=== PATIENT | female | born 1950 | race Hispanic/Latino ===

== ENCOUNTER 2023-10-16 05:05 | Observation (INO) | payer MEDICARE ==
[2023-10-11 14:36] VITALS: BP 141/67; PULSE 78; RESP 13
[~2023-10-16] VITALS: Ht 157.5 cm; Wt 53.1 kg
[2023-10-16] VITALS (25 sets, daily range): BP systolic 118–154; BP diastolic 52–73; PULSE 67–93; RESP 11–18; O2SAT 98
[~2023-10-16 05:05] MED LIST: CYCL30DR OU
[2023-10-16] MEDS ORDERED: 0.9%NACL 100ML 48.45 ML, ROPIVACAINE 0.5% 5MG/ML 30ML 246.25 MG, KETOROLAC TROMETHAMINE... IV ONE ×5 (06:00)
[2023-10-16] MEDS ORDERED: LACTATED RINGERS 1000ML 1,000 ML IV ONE (06:25)
[2023-10-16] MEDS ORDERED: CEFAZOLIN SODIUM 2 GM VIAL ONE (06:25)
[2023-10-16] MEDS ORDERED: CEFAZOLIN SODIUM 1 GM VIAL ONE ×2 (08:30→10:36)
[2023-10-16] MEDS ORDERED: TRANEXAMIC ACID 1000MG/10ML ONE ×2 (08:30→10:36)
[2023-10-16] MEDS ORDERED: GENTAMICIN SULFATE 80 MG/2 ML VIAL ONE ×2 (08:31→10:36)
[2023-10-16] MEDS ORDERED: MIDAZOLAM HCL 1 MG/ML 2ML VIAL ONE (10:40)
[2023-10-16] MEDS ORDERED: ROCURONIUM 10MG/1ML SYR 10 MG/ML ML ONE (10:40)
[2023-10-16] MEDS ORDERED: LIDOCAINE PF 100MG/5ML (2%) SYRINGE 5ML ONE (10:40)
[2023-10-16] MEDS ORDERED: PROPOFOL 10 MG/ML 20ML VIAL IV ONE ×2 (10:40→12:00)
[2023-10-16] MEDS ORDERED: FENTANYL CITRATE PF 50 MCG/1 ML 2ML VIAL ONE ×2 (10:41→16:13)
[2023-10-16] MEDS ORDERED: PHENYLEPHRINE HCL 10 MG/ML 1ML VIAL IV ONE (11:23)
[2023-10-16] MEDS ORDERED: DEXAMETHASONE SOD PHOSPHATE 4 MG/ML 1ML VIAL ONE (11:42)
[2023-10-16] MEDS ORDERED: ONDANSETRON 4MG INJ ONE ×2 (11:42→13:48)
[2023-10-16] MEDS ORDERED: TRANEXAMIC ACID 1000MG/10ML IV ONE (11:50)
[2023-10-16] MEDS ORDERED: MEPERIDINE-PF 25 MG/ML SYG ONE ×2 (13:48→14:26)
[2023-10-16] MEDS ORDERED: TRAMADOL HCL 50 MG TABLET ONE (15:16)
[2023-10-16] MEDS ORDERED: DiphenhydrAMINE HCL 50 MG/ML VIAL IM PRN (18:00)
[2023-10-16] MEDS ORDERED: MAG/ALUM/SIMETH 30 ML UDCUP PO PRN (18:00)
[2023-10-16] MEDS ORDERED: LACTULOSE 20 GM/30 ML UDCUP PO PRN (18:00)
[2023-10-16] MEDS ORDERED: ZINC OXIDE OINT 30GM TUBE TP PRN ×2 (18:00→18:30)
[2023-10-16] MEDS ORDERED: HYDROMORPHONE PCA 10 MG/50 ML 50 ML IV PRN (18:00)
[2023-10-16] MEDS ORDERED: DIPHENOXYLATE HCL/ATROPINE 2.5/0.025 MG TAB PO PRN (18:00)
[2023-10-16] MEDS ORDERED: ONDANSETRON 4MG INJ IVP PRN (18:00)
[2023-10-16] MEDS ORDERED: DIPHENHYDRAMINE HCL 25 MG CAPSULE PO PRN (18:00)
[2023-10-16] MEDS ORDERED: BENZOCAINE/MENTH/CETYLPYRD CL 1 EACH LOZENGE MM PRN (18:00)
[2023-10-16] MEDS ORDERED: ACETAMINOPHEN 325 MG TAB PO PRN ×2 (18:00)
[2023-10-16] MEDS ORDERED: ACETAMINOPHEN 325 MG TAB PO SCH (18:00)
[2023-10-16] MEDS ORDERED: DIPHENHYDRAMINE HCL 25 MG CAPSULE PO SCH (18:00)
[2023-10-16] MEDS: 0.9%NACL 1000ML 1,000 ML IV SCH ×2 (18:15→18:40)
[2023-10-16] MEDS: TRAMADOL HCL 50 MG TABLET PO PRN (20:02)
[2023-10-16] MEDS: CEFAZOLIN SODIUM 2 GM VIAL IVPB SCH (20:10)
[2023-10-16] MEDS: (Cyclosporine (Restasis) 1 DROP) OU SCH (21:00)
[2023-10-17] VITALS (7 sets, daily range): BP systolic 117–136; BP diastolic 57–78; PULSE 75–95; RESP 16–20; O2SAT 94
[2023-10-17] MEDS: TRAMADOL HCL 50 MG TABLET PO PRN ×6 (00:11→21:00)
[2023-10-17] MEDS: CEFAZOLIN SODIUM 2 GM VIAL IVPB SCH (04:09)
[2023-10-17 05:09] LABS: HEMATOCRIT 33.6 % (36-48); MEAN CORPUSCULAR HEMOGLOBIN 30.1 pg (27.0-33.0); MEAN CORPUSCULAR HGB CONC 31.5 g/dL (32.0-36.0); MEAN CORPUSCULAR VOLUME 95.5 fL (79-99); RED BLOOD CELL COUNT(AUTO) 3.52 MIL/uL (4.00-5.50); RED CELL DISTRIBUTION WIDTH 12.8 % (11.0-15.5); WHITE BLOOD COUNT (AUTO) 11.1 K/uL (4.8-10.8)
[2023-10-17 05:30] LABS: CREATININE 0.6 mg/dL (0.5-1.5)
[2023-10-17] MEDS: RIVAROXABAN 10 MG TABLET PO SCH (08:24)
[2023-10-17] MEDS: (Cyclosporine (Restasis) 1 DROP) OU SCH ×2 (09:00→21:00)
[2023-10-17] MEDS: 0.9%NACL 1000ML 1,000 ML IV SCH (14:00)
[2023-10-18 03:34] VITALS: BP 127/64; PULSE 93; RESP 20
[2023-10-18 04:14] LABS: BASOPHILS # (AUTO) 0.01 K/uL (0.00-0.20); BASOPHILS % (AUTO) 0.1 % (0.0-5.0); EOSINOPHILS # (AUTO) 0.01 K/uL (0.00-0.70); EOSINOPHILS % (AUTO) 0.1 % (0.0-8.0); HEMATOCRIT 30.5 % (36-48); IMMATURE GRANULOCYTE ABSOLUTE 0.04 K/uL (0-1); LYMPHOCYTES # (AUTO) 1.2 K/uL (1.0-4.8); LYMPHOCYTES % (AUTO) 11.1 % (21.0-51.0); MEAN CORPUSCULAR HEMOGLOBIN 29.8 pg (27.0-33.0); MEAN CORPUSCULAR HGB CONC 32.5 g/dL (32.0-36.0); MEAN CORPUSCULAR VOLUME 91.9 fL (79-99); MONOCYTES # (AUTO) 0.7 K/uL (0.1-1.0); MONOCYTES % (AUTO) 5.9 % (3.0-13.0); NEUTROPHILS # (AUTO) 9.1 K/uL (1.8-7.7); NEUTROPHILS % (AUTO) 82.4 % (40.0-77.0); PLATELET COUNT (AUTO) 178 K/uL (130-400); RED BLOOD CELL COUNT(AUTO) 3.32 MIL/uL (4.00-5.50); RED CELL DISTRIBUTION WIDTH 12.6 % (11.0-15.5); WHITE BLOOD COUNT (AUTO) 11.1 K/uL (4.8-10.8)
[2023-10-18 04:25] LABS: CREATININE 0.6 mg/dL (0.5-1.5); POTASSIUM 3.9 mmol/L (3.5-5.1)
[2023-10-18] MEDS: TRAMADOL HCL 50 MG TABLET PO PRN ×4 (05:04→12:58)
[2023-10-18 08:00] VITALS: BP 139/58; PULSE 104; RESP 16
[2023-10-18] MEDS: (Cyclosporine (Restasis) 1 DROP) OU SCH (09:00)
[2023-10-18] MEDS: RIVAROXABAN 10 MG TABLET PO SCH (09:02)
[2023-10-18 12:00] VITALS: BP 125/53; PULSE 81; RESP 18
== END 2023-10-18 15:50 ==
LOC: DAH 05:05 → DAHIP 05:06 → DAH 05:06 → 4BH 17:46
PROVIDERS: ADMIT Orthopaedic Surgery; ATTEND Orthopaedic Surgery
DX: M17.11 Unilateral primary osteoarthritis, right knee (principal); M25.561 Pain in right knee; E88.810 Metabolic syndrome; K58.9 Irritable bowel syndrome, unspecified; Z98.890 Other specified postprocedural states
CPT/HCPCS: 87641; 27447; 96365; 96366 ×3; 96368; 97161; 97012; 97116 ×5; 97530 ×13; 96375; 80048 ×2; 85027; 36415 ×2; 85025; A6260; J1100; G0378 ×41; A4510; A4663; J7120 ×2; A4215 ×2; A4649 ×4; J3010 ×2; J0690 ×4; J3490 ×2; J1170; J0171; J2001; J1580; J2250; J2704 ×2; J2405 ×3; J1885; J2175 ×2; J2795; J2371; J0735; A6223; C1763 ×2; C1776; A4223; A4222; A4221; A6450; J7030